=== PATIENT | female | born 1970 | race Caucasian/White ===

== ENCOUNTER 2022-09-04 12:18 | Emergency (ER) | payer OTHER, SELFPAY ==
[2022-09-04 13:02] VITALS: BP 127/78; PULSE 71; RESP 16; TEMP 36.9; O2SAT 100; BMI 23.4
--- NOTE | 2022-09-04 13:06 | XR_ITS ---
[facility] [id number] Patient Name: PUMA MARROQUIN MRN: [id number] date: 1970 Sex: F Assigned Patient Location: ED.MAIN Current Patient Location: ED.MAIN Accession/Order Number: [id number] Exam Date: 09/04/2022 14:05 Report Date: 09/04/2022 14:52 At the request of: JOHNNY HAMMER Procedure: XR ankle LT min 3V EXAM: XR foot LT min 3V, XR ankle LT min 3V HISTORY: injury c/o pain COMPARISON: None. FINDINGS: 3 radiographs of the left ankle and 3 radiographs of the left foot were obtained. Ossific fragment measuring 6 mm along the lateral aspect of the cuboid. Ossific fragment measuring 4 mm along the lateral aspect of the calcaneus. No dislocation. Ankle mortise is symmetric. Talar dome is normal. Soft tissue swelling along the lateral aspect of the calcaneus. Bipartite medial hallux sesamoid. IMPRESSION: Ossific fragment measuring 6 mm along the lateral aspect of the cuboid. Ossific fragment measuring 4 mm along the lateral aspect of the calcaneus. These are favored to be an acute avulsion fractures. However, it could be the sequela of remote trauma. There is mild soft tissue swelling along the lateral aspect of the calcaneus and cuboid. Electronically authenticated by: LIA FLOREZ Date: 09/04/2022 14:52
--- NOTE | 2022-09-04 13:06 | XR_ITS ---
[facility] [id number] Patient Name: PUMA MARROQUIN MRN: [id number] date: 1970 Sex: F Assigned Patient Location: ED.MAIN Current Patient Location: ED.MAIN Accession/Order Number: [id number] Exam Date: 09/04/2022 14:05 Report Date: 09/04/2022 14:52 At the request of: JOHNNY HAMMER Procedure: XR foot LT min 3V EXAM: XR foot LT min 3V, XR ankle LT min 3V HISTORY: injury c/o pain COMPARISON: None. FINDINGS: 3 radiographs of the left ankle and 3 radiographs of the left foot were obtained. Ossific fragment measuring 6 mm along the lateral aspect of the cuboid. Ossific fragment measuring 4 mm along the lateral aspect of the calcaneus. No dislocation. Ankle mortise is symmetric. Talar dome is normal. Soft tissue swelling along the lateral aspect of the calcaneus. Bipartite medial hallux sesamoid. IMPRESSION: Ossific fragment measuring 6 mm along the lateral aspect of the cuboid. Ossific fragment measuring 4 mm along the lateral aspect of the calcaneus. These are favored to be an acute avulsion fractures. However, it could be the sequela of remote trauma. There is mild soft tissue swelling along the lateral aspect of the calcaneus and cuboid. Electronically authenticated by: LIA FLOREZ Date: 09/04/2022 14:52
--- NOTE | 2022-09-04 14:16 | ED.LOWEXI1 ---
HPI - Extremity Injury (Lower) General Chief Complaint: Extremity Injury, Lower Stated Complaint: FALL Time Seen by Provider: 09/04/22 14:07 Source: patient Mode of arrival: Wheelchair Limitations: no limitations History of Present Illness HPI Narrative: patient is a 52-year-old female presents to the Emergency Room with concerns of left lateral foot and ankle pain and swelling. Patient states she was seated on her porch, stood up in her leg was numb from sitting on it causing her ankle to roll, instant crack and pain to the lateral foot and ankle. Patient notes pain with weightbearing, denies history of injury to this foot or ankle previously. Patient denies any additional injury such as head injury or neck injury. 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 Injury: Left: ankle and foot Severity: moderate Associated symptoms: Reports snap/pop sensation and swelling Related Data Previous Rx's Medication Instructions Recorded ibuprofen 600 mg tablet 600 mg PO TID PRN pain #30 tabs 09/04/22 Allergies Allergy/AdvReac Type Severity Reaction Status Date / Time No Known Drug Allergies Allergy Verified 09/04/22 13:02 Review of Systems ROS Constitutional Denies: fever or chills Cardiovascular Denies: chest pain Exam Narrative Exam Narrative: Vital signs reviewed and nurse's notes. The patient is not hypoxic. General: Alert, no acute distress, patient resting comfortably Skin: warm, intact, no pallor noted, mild resolving sunburn to the chest and back Head: Normocephalic, atraumatic Eye: Normal conjunctiva, no exudates Respiratory: No acute distress, lungs CTA Musculoskeletal: No evidence of deformity to the left knee. There is mild amount of swellingand bruising noted to the lateral foot and ankle. There is dependent ecchymosis. No erythema or warmth noted. DP and PT pulses are intact 2+. Normal sensation, normal capillary refill less than 2 seconds. There is no cyanosis or mottling noted. The patient has tenderness to lateral ankle involving the ATFL, cuboid and 5th metatarsal base. There is no midfoot tenderness, or tenderness to the medial ankle. negative anterior drawer, inversion stressing not performed The patient has negative anterior drawer and Apolinar testingto the knee joint, no proximal fibular tenderness. The patient was able to flex and extend although with pain. Patient was able to extend leg off the cart without difficulty. No tenderness noted to the 5th MT, midfoot, ankle or proximal fibular area. There is no pain with calcaneal squeeze, achilles tendon is intact and no defect is palpated. The patient has no pelvic instability. The patient has no shortening or rotation noted to the bilateral lower extremities. Neurological: alert and orient x4, normal sensory and motor observed. Psychiatric: Cooperative Constitutional Vital Signs - 24 hr 09/04/22 13:02 Temperature 98.4 F Pulse Rate [Monitor] 71 Respiratory Rate 16 Blood Pressure [Right Arm] 127/78 H Pulse Oximetry 100 Oxygen Delivery Method Room Air Course Course Hospital Course: Splint Application: The patient was placed in a posterior short leg splint with Orthoglass splint material, 4 inch. The patient had 2 rolls of the web roll applied to the affected site. Patient then had the splint material placed with felt side against web roll and skin. The patient had the splint secured in place with frederic bandage. The patient was neurovascularly intact post application of the splint. Vital Signs Vital signs: Vital Signs Temperature 98.4 F 09/04/22 13:02 Pulse Rate 71 09/04/22 13:02 Respiratory Rate 16 09/04/22 13:02 Blood Pressure 127/78 H 09/04/22 13:02 Pulse Oximetry 100 09/04/22 13:02 Oxygen Delivery Method Room Air 09/04/22 13:02 Temperature 98.4 F 09/04/22 13:02 Pulse Rate 71 09/04/22 13:02 Respiratory Rate 16 09/04/22 13:02 Blood Pressure 127/78 H 09/04/22 13:02 Pulse Oximetry 100 09/04/22 13:02 Oxygen Delivery Method Room Air 09/04/22 13:02 MDM - Extremity Injury (Lower) MDM Narrative Medical decision making narrative: recommend nonweightbearing, discussed x-rays of the left foot and ankle concern for aavulsion fracture off the cuboid, patient is notable bruising swelling and point tenderness in this location. Patient will be placed in a posterior splint. nonweightbearing with crutches dispensed instructions given. ( off work tomorrow for ice , elevation and follow up needs) She is to follow-up with the [facility] may return to the Emergency Room if symptoms worsen or new symptoms develop. Patient states she can work as long as she has crutches to get to and from her office chair, patient will use Motrin and Tylenol with strong recommendation for ice and elevation. The patient is to followup with foot and ankle clinic Dr. Aquino in next 2-3 days or to return to the emergency department should any of the signs or symptoms worsen or new symptoms develop. Patient had questions answered. The patient agrees with the following Diagnosis and Treatment plan and the patient will be discharged home. Discharge Plan Discharge Chief Complaint: Extremity Injury, Lower Clinical Impression: Left cuboid fracture, Ankle sprain and strain Patient Disposition: Home, Self-Care Time of Disposition Decision: 14:19 Condition: Good Prescriptions / Home Meds: New ibuprofen 600 mg tablet 600 mg PO TID PRN (Reason: pain) Qty: 30 0RF Instructions: Foot Fracture in Adults (ED) Stand Alone Forms: Portal Instructions Referrals: Dexter Aquino MD [Physician] - As soon as possible (call monday) Follow Up Appointments: Dr. Aquino, call monday for appt this week, be nonweight bearing Discharge Date/Time: 09/04/22 15:14
[2022-09-04] MEDS: IBUPROFEN 600 MG TABLET PO (15:12)
== END 2022-09-04 15:14 | disposition home or self-care (01) ==
PROVIDERS: Emergency Provider Emergency Medicine; PCP Nurse Practitioner Family
DX: S92.212A Displaced fracture of cuboid bone of left foot, initial encounter for closed fracture (principal); S93.402A Sprain of unspecified ligament of left ankle, initial encounter; S96.912A Strain of unspecified muscle and tendon at ankle and foot level, left foot, initial encounter; X50.9XXA Other and unspecified overexertion or strenuous movements or postures, initial encounter
CPT/HCPCS: 29515; 73610; 73630; 99283

== ENCOUNTER 2022-09-06 14:33 | Outpatient (OUT) | payer OTHER, SELFPAY ==
--- NOTE | 2022-09-06 14:37 | CT_ITS ---
[address] [address] Patient Name: PUMA MARROQUIN MRN: [id number] date: 1970 Sex: F Assigned Patient Location: CT Current Patient Location: CT Accession/Order Number: [id number] Exam Date: 09/06/2022 14:40 Report Date: 09/07/2022 06:48 At the request of: BENTON SOSA Procedure: CT ankle LT wo con EXAMINATION: CT ankle LT wo con HISTORY: Non Displaced Fracture Of Cuboid Left Foot S92.215A COMPARISON: XR left foot and ankle 09/04/2022 TECHNIQUE: Multi-planar CT images were created without IV contrast. Dose reduction techniques were achieved by using automated exposure control and/or adjustment of mA and/or kV according to patient size and/or use of iterative reconstruction technique. FINDINGS: BONES: Small cortical avulsion fractures from the superior anterior lateral margin of the calcaneus and adjacent posterior lateral margin of the cuboid. SOFT TISSUES: Lateral soft tissue swelling/edema. EFFUSION: None visible. OTHER: Negative. IMPRESSION: 1. Minimally displaced cortical avulsion fracture fragments from the adjacent contiguous lateral corners of the cuboid and calcaneus. Electronically authenticated by: GEORGES WILHELM Date: 09/07/2022 06:48
== END 2022-09-06 14:34 ==
LOC: CT 14:33
PROVIDERS: PCP Nurse Practitioner Family; Visit Provider Physician Assistant
DX: S92.215A Nondisplaced fracture of cuboid bone of left foot, initial encounter for closed fracture (principal); S92.002A Unspecified fracture of left calcaneus, initial encounter for closed fracture; X58.XXXA Exposure to other specified factors, initial encounter
CPT/HCPCS: 73700

== ENCOUNTER 2023-06-09 20:42 | Emergency (ER) | payer OTHER, SELFPAY ==
[2023-06-09] VITALS (21 sets, daily range): BP systolic 149–153; BP diastolic 59–61; PULSE 66–86; RESP 13–30; TEMP 36.5; O2SAT 95–96; BMI 24.6
--- NOTE | 2023-06-09 20:50 | ECG_ITS ---
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
--- NOTE | 2023-06-09 21:00 | ED_ITS ---
HPI - Chest Pain General Chief Complaint: Chest Pain Stated Complaint: CHEST PAIN Time Seen by Provider: 06/09/23 20:54 Source: patient Mode of arrival: walk-in Limitations: no limitations History of Present Illness HPI narrative: presents complaining of chest pain. Daily cigarette smoker. Family history of heart disease in 2 siblings. States she was resting and watching TV when she developed chest pain left midaxillary that radiated to substernal area. Associated with dyspnea and nausea. Lasted about 20 minutes and has now resolved. No prior history of heart disease. Past history of depression MD complaint: Reports chest pain Risk Factors Coronary artery disease risk factors: smoking history and family history of CAD before age 50 Related Data Home Medications Medication Instructions Recorded Confirmed venlafaxine 150 mg 150 mg PO DAILY 06/09/23 06/09/23 capsule,extended release 24 hr (Effexor XR) Previous Rx's Medication Instructions Recorded ibuprofen 600 mg tablet 600 mg PO TID PRN pain #30 tabs 09/04/22 Allergies Allergy/AdvReac Type Severity Reaction Status Date / Time No Known Drug Allergies Allergy Verified 06/09/23 20:47 Review of Systems ROS Status of ROS 10 or more systems reviewed and unremark able except as noted in history and below PFSH PFSH Social History Smoking status: Current every day smoker Exam Constitutional Vital Signs, click to edit/add: Last Vital Signs Temp 97.7 F 06/09/23 20:49 Pulse 71 06/09/23 22:40 Resp 13 06/09/23 22:40 BP 149/59 H 06/09/23 22:11 Pulse Ox 96 06/09/23 20:54 O2 Del Method Room Air 06/09/23 20:49 Common normals: no apparent distress, average body habitus, oriented x3, no limitations, healthy appearing, alert and well nourished [facility] Common normals: normocephalic and head/scalp atraumatic Eye Common normals: PERRL, EOMs intact bilaterally and conjunctivae normal Respiratory Common normals: normal respiratory effort, no retractions, no use of accessory muscles and clear to auscultation bilaterally Cardio Common normals: regular rate, regular rhythm, S1 normal heart sound and S2 normal heart sound GI Common normals: Normal to inspection, nondistended, normoactive bowel sounds present, soft to palpation and non-tender Extremity Common normals: normal to inspection and full ROM Neuro Common normals: oriented x3, CN's II-XII intact bilaterally, moves all extremities and no focal motor deficits Psych Appearance: grossly normal Course Vital Signs Vital signs: Vital Signs Temperature 97.7 F 06/09/23 20:49 Pulse Rate 79 06/09/23 20:49 Respiratory Rate 16 06/09/23 20:49 Blood Pressure 153/61 H 06/09/23 20:49 Pulse Oximetry 95 06/09/23 20:49 Oxygen Delivery Method Room Air 06/09/23 20:49 Temperature 97.7 F 06/09/23 20:49 Pulse Rate 71 06/09/23 22:40 Respiratory Rate 13 06/09/23 22:40 Blood Pressure 149/59 H 06/09/23 22:11 Pulse Oximetry 96 06/09/23 20:54 Oxygen Delivery Method Room Air 06/09/23 20:49 MDM - Chest Pain MDM Narrative Medical decision making narrative: patient presents with chest pain that occurred at rest. No history of similar pain. She does smoke cigarettes. Pain tonight associated with dyspnea and nausea. Resolved after 20 minutes. troponin not detectable x2. Patient states she has 2 siblings with heart disease. Advised to follow up with her family doctor to discuss stress testing. She is also advised to return to the ER if pain recurs Lab Data Labs: Lab Results 06/09/23 06/09/23 Range/Units 21:00 23:55 WBC 12.9 H (4.0-11.0) 10^3/uL RBC 4.73 (4.20-5.40) 10^6/uL Hgb 14.2 (12.0-16.0) g/dL Hct 42.9 (36.0-48.0) % MCV 90.7 (81.0-99.0) fL MCH 30.0 (26.7-34.0) pg MCHC 33.1 (29.9-35.2) g/dL RDW 12.0 (11.0-15.0) % Plt Count 389 (150-450) 10^3/uL MPV 8.3 L (9.5-13.5) fL Neut % (Auto) 56.9 (43.0-75.0) % Lymph % (Auto) 30.8 (20.5-60.0) % Collin % (Auto) 6.5 (1.7-12.0) % Eos % (Auto) 4.3 (0.9-7.0) % Baso % (Auto) 1.2 (0.2-2.0) % Neut # (Auto) 7.4 H (1.4-6.5) 10^3/uL Lymph # (Auto) 4.0 H (1.2-3.8) 10^3/uL Collin # (Auto) 0.8 (0.3-0.8) 10^3/uL Eos # (Auto) 0.6 (0.0-0.7) 10^3/uL Baso # (Auto) 0.2 H (0.0-0.1) 10^3/uL Abs Immat Gran (auto) 0.04 H (0.00-0.03) 10^3/uL Imm/Tot Granulo (auto) 0.3 (0.0-0.5) % D-Dimer 0.35 (<=0.59) mg/L FEU Sodium 137 (136-145) mmol/L Potassium 3.6 (3.5-5.1) mmol/L Chloride 103 (98-107) mmol/L Carbon Dioxide 24.5 (21.0-32.0) mmol/L Anion Gap 13.1 BUN 12.0 (7.0-18.0) mg/dL Creatinine 0.82 (0.55-1.02) mg/dL Est GFR ( Amer) >60 (>=60) Est GFR (Non-Af Amer) >60 (>=60) BUN/Creatinine Ratio 14.6 Glucose 93 (74-106) mg/dL Calcium 9.6 (8.5-10.1) mg/dL Troponin I High Sens <4.0 L <4.0 L (4.0-51.3) pg/mL Discharge Plan Discharge Stand Alone Forms: Portal Instructions Chief Complaint: Chest Pain Clinical Impression: Chest pain Patient Disposition: Home, Self-Care Prescriptions / Home Meds: No Action ibuprofen 600 mg tablet 600 mg PO TID PRN (Reason: pain) Qty: 30 0RF venlafaxine [Effexor XR] 150 mg capsule,extended release 24hr 150 mg PO DAILY Instructions: Chest Pain (ED) Additional Instructions: follow up with your doctor next week to discuss stress testing Referrals: CADY MCCORMICK [Primary Care Provider] - 1 week
--- NOTE | 2023-06-09 21:03 | XR_ITS ---
[address] [address] Patient Name: PUMA MARROQUIN MRN: [id number] date: 1970 Sex: F Assigned Patient Location: ER Current Patient Location: ER Accession/Order Number: [id number] Exam Date: 06/09/2023 21:10 Report Date: 06/09/2023 21:37 At the request of: GERSON WHITNEY Procedure: XR chest 1V EXAM: XR chest 1V HISTORY: chest pain COMPARISON: None. TECHNIQUE: Single view of the chest FINDINGS: Heart size normal. No focal consolidation, pleural effusion, pulmonary congestion or pneumothorax. XR/XR chest 1V IMPRESSION: No acute findings. Electronically authenticated by: BRITTON FUENTES Date: 06/09/2023 21:37
[2023-06-09 21:16] LABS: Basophils Absolute Auto 0.2 10^3/uL (0.0-0.1); Basophils Percent Auto 1.2 % (0.2-2.0); Eosinophils Absolute Auto 0.6 10^3/uL (0.0-0.7); Eosinophils Percent Auto 4.3 % (0.9-7.0); Hematocrit 42.9 % (36.0-48.0); Hemoglobin 14.2 g/dL (12.0-16.0); Immature Granulocytes Abs Auto 0.04 10^3/uL (0.00-0.03); Immature Granulocytes Pct Auto 0.3 % (0.0-0.5); Lymphocytes Percent Auto 30.8 % (20.5-60.0); Mean Corpuscular HGB Conc 33.1 g/dL (29.9-35.2); Mean Corpuscular Volume 90.7 fL (81.0-99.0); Mean Platelet Volume 8.3 fL (9.5-13.5); Monocytes Absolute Auto 0.8 10^3/uL (0.3-0.8); Monocytes Percent Auto 6.5 % (1.7-12.0); Neutrophils Absolute Auto 7.4 10^3/uL (1.4-6.5); Neutrophils Percent Auto 56.9 % (43.0-75.0); Platelet Count 389 10^3/uL (150-450); Red Blood Count 4.73 10^6/uL (4.20-5.40); White Blood Count 12.9 10^3/uL (4.0-11.0)
[2023-06-09 21:30] LABS: D Dimer 0.35 mg/L FEU (<=0.59)
[2023-06-09 21:35] LABS: Anion Gap 13.1; BUN Creatinine Ratio 14.6; Calcium 9.6 mg/dL (8.5-10.1); Carbon Dioxide 24.5 mmol/L (21.0-32.0); Chloride 103 mmol/L (98-107); Estimated GFR (African America >60 (>=60); Estimated GFR (Non-African Ame >60 (>=60); Glucose 93 mg/dL (74-106); Potassium 3.6 mmol/L (3.5-5.1); Sodium 137 mmol/L (136-145); Troponin I High Sensitivity <4.0 pg/mL (4.0-51.3)
[2023-06-10] VITALS: PULSE 69; RESP 18
[2023-06-10 00:10] VITALS: PULSE 67; RESP 18
[2023-06-10 00:19] LABS: Troponin I High Sensitivity <4.0 pg/mL (4.0-51.3)
[2023-06-10 00:20] VITALS: PULSE 72; RESP 16
[2023-06-10 00:24] VITALS: PULSE 82; RESP 19
[2023-06-10 00:31] VITALS: BP 138/73
== END 2023-06-10 00:35 | disposition home or self-care (01) ==
PROVIDERS: Emergency Provider Internal Medicine; PCP Nurse Practitioner Family
DX: R07.9 Chest pain, unspecified (principal); F17.210 Nicotine dependence, cigarettes, uncomplicated; Z82.49 Family history of ischemic heart disease and other diseases of the circulatory system; Z79.899 Other long term (current) drug therapy
CPT/HCPCS: 36415; 71045; 80048; 84484; 85025; 85378; 93005; 99284

== ENCOUNTER 2023-06-23 08:49 | Emergency (ER) | payer OTHER, SELFPAY ==
[2023-06-23] VITALS (18 sets, daily range): BP systolic 126–151; BP diastolic 80–101; PULSE 72–90; RESP 12–23; TEMP 36.9; O2SAT 95–98; BMI 25.8
--- OUTSIDE RECORDS SUMMARY | 2023-06-23 08:57 | XMS_ITS | CCD ---
Author Organization [facility] Care Team Providers Care Communication And Outreach Manager Name Role Phone Brandi Sorto Unavailable CADY MCCORMICK Admitting Unavailable JACE, CADY Primary Care Unavailable CADY MCCORMICK Attending Unavailable JACE, CADY Primary Care Unavailable GEORGES WILHELM Consulting Unavailable CADY MCCORMICK Attending Unavailable CADY MCCORMICK Admitting Unavailable CADY MCCORMICK Consulting Unavailable JACE, CADY Admitting Unavailable JACE, CADY Primary Care Unavailable CADY MCCORMICK Consulting Unavailable CADY MCCORMICK Attending Unavailable JACE, CADY Primary Care Unavailable WANDER ., MR DOS SANTOS Consulting Unavailable PAY ., DR ORNELAS Admitting Unavailable PAY ., DR ORNELAS Attending Unavailable Medications Current Medications Medication Drug Class(es) Dates Sig (Normalized) Sig (Original) [id number] 200 actuat albuterol 0.09 mg/actuat metered dose inhaler (2 sources) beta2-Adrenergic Agonist Start: 04-29-2021 take 2 puff(s) by inhalation every four hours as needed Albuterol Sulfate HFA 108 (90 Base) MCG/ACT 2 puffs as needed Inhalation every 4 hrs Apr, Active Albuterol Sulfat e HFA Active Aspirin (1 source) Platelet Aggregation Inhibitor, Nonsteroidal Anti-inflammatory Drug Aspirin Active atorvastatin (1 source) HMG-CoA Reductase Inhibitor Atorvastatin Calcium Active benzonatate 200 mg oral capsule (1 source) Non-narcotic Antitussive Start : 04-29 take 1 capsule by mouth every eight hours Benzonatate 200 MG 1 capsule Orally Three times a day for 10 day(s) Apr, Active Cetirizine (1 source) Histamine-1 Receptor Antagonist ZyrTEC Allergy Activ e FLUoxetine (1 source) Serotonin Reuptake Inhibitor PROzac Active methylPREDNISolone 4 mg oral tablet (1 source) Corticosteroid Start : 04-29 methylPREDNISolone 4 MG as directed Orally Once a day for 6 days Apr, Active Problems Active Problems Problem Classification Problem Date Documented Da te Episodic/Chronic Chronic obstructive pulmonary disease and bronchiectasis (1 source) Emphysema, unspecified; Translations: [EMPHYSEMA UNSPECIFIED] Onset: 04-05-2022 Chronic Headache; including migraine (4 sources) Headache; including migraine; Translations: [HEADACHE UNSPECIFIED] Onset: 11-19-2021 Substance-related disorders (1 source) Nicotine dependence, cigarettes, uncomplicated; Translations: [NICOTINE DEPEND CIGARETTES UNCOMP] Onset: 04-05-2022 Chronic Unclassified (1 source) CONTACT W/AND (SUSP) EXPOS COVID-19; Translations: [CONTACT W/AND (SUSP) EXPOS COVID-19] Onset: 11-22-2021 Past or Other Problems Problem Classification Problem Date Documented Da te Episodic/Chronic Chronic obstructive pulmonary disease and bronchiectasis (1 source) Bronchitis, not specified as acute or chronic Onset: 04-29-2021 Resolved: 04-29-2021 Episodic E Codes: Natural/environment (1 source) Bitten or stung by nonvenomous insect and other nonvenomous arthropods, initial encounter; Translations: [BITTEN NONVENOM INSCT OTH ARTH INIT] Onset: 04-05-2022 Episodic Immunizations and screening for infectious disease (1 source) Contact with and (suspected) exposure to other viral communicable diseases Onset: 04-29-2021 Resolved: 04-29-2021 Episodic Other aftercare (1 source) Other long-term (current) drug therapy; 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] Onset: 04-05-2022 Episodic Other ear and sense organ disorders (3 sources) Otalgia, right ear; Translations: [OTALGIA RIGHT EAR] Onset: 04-04-2022 Episodic Residual codes; unclassified (1 source) Acquired absence of other specified parts of digestive tract; Translations: [ACQ ABSENCE OTH PART DIGESTV TRACT] Onset: 04-05-2022 Episodic Residual codes; unclassified (1 source) Acquired absence of both cervix and uterus; Translations: [ACQUIRED ABSENCE BOTH CERVIX AND UTERUS] Onset: 04-05-2022 Episodic Superficial injury; contusion (1 source) Insect bite (nonvenomous) of right ear, initial encounter; Translations: [INSECT BITE RT EAR INIT ENCOUNTER] Onset: 04-05-2022 Episodic Results Test Name Value Interpretation Reference Range Facil julio Covid-19 PCR (CVDTB)on 11-01 SARS-CoV-2 (COVID-19) RNA JUAN+probe Ql (Unsp spec) Not detected Normal NOT DETECTED [facility] Comment on above: Result Comment: This test is not yet lizzie roved or cleared by the [place] FDA. When there are no FDA-approved or cleared tests available, and other criteria are met, FDA can make tests available under an emergency access mechanism called an Emergency Use Authorization (EUA). The EUA for this test is supported by the [place] of Health and Human Service's (HHS's) declaration that circumstances exist to justify the emergency use of in vitro diagnostics for the detection and/or diagnosis of the virus that causes COVID-19. This EUA will remain in effect (meaning this test can be used) for the duration of the COVID-19 declaration justifying emergency of IVDs, unless it is terminated or revoked by FDA (after which the test may no longer be used). When diagnostic testing is negative, the possibility of a false negative should be considered in the context of a patient's recent exposures and the presence of clinical signs and symptoms consistent with SARS-CoV-2. Performed By: #### C [facility] #### [facility] [address] [place] [address] Dr. Dhaval aSm MRI BRAIN WO CONon 2 MRI BRAIN WO CON EXAMINATION: MRI BRAIN WO CON, 11/19/2021 11:16 AM EDT HISTORY: Headache , dizziness, blurred vision for 2 weeks COMPARISON: None. TECHNIQUE: MRI of the brain was performed without IV contrast. FINDINGS: CEREBRUM: Numerous 5 mm or smaller T2 hyperintensities scattered within the periventricular and subcortical deep white matter bilaterally. No edema, hemorrhage, mass, acute infarction, or inappropriate atrophy. CEREBELLUM: Cerebellar tonsils extend below the foramen magnum, 3 mm on right, 2 mm on left. No edema, hemorrhage, mass, acute infarction, or inappropriate atrophy. BRAINSTEM: No edema, hemorrhage, mass, acute infarction, or inappropriate atrophy. CSF SPACES: Ventricles, cisterns, and sulci are appropriate for age. No hydrocephalus, subarachnoid hemorrhage, or mass. SKULL: No mass or other significant visible lesion. SINUSES: Limited views demonstrate no significant mucosal thickening or fluid. ORBITS: Limited views are unremarkable. OTHER: Negative. IMPRESSION: 1. Bilateral cerebellar tonsillar ectopia which may contribute to patient's symptoms. 2. Numerous tiny T2 hyperintensities scattered within the deep white matter; nonspecific but typically associated with chronic small vessel ischemic changes, sequela of chronic migraine headaches, demyelinating process, or an incidental finding. Consider follow-up imaging in 6 months to document stability. Electronically authenticated by: GEORGES WILHELM Date: 2021-11-19 12:04 Normal [facility] COVID Quick Testingon 2021 Result Negative [email or web address] Other Quick Fluon 04-29-2021 FLUAV Ab CF (S) [Titer] Negative [email or web address] Other FLUBV Ab CF (S) [Titer] Negative [email or web address] Other Vital Signs Date Time Vital Sign Value Performing Clinician Facility 04-29-2021 10:00-0500 Body height 154.94 cm Branid Abreuault Other [email or web address] Other 04-29-2021 10:00-0500 Body mass index (BMI) [Ratio] 23.99 kg/m2 Brandi Noreen Other [email or web address] Other 04-29-2021 10:00-0500 Body temperature 97 [degF] Brandi Noreen Other [email or web address] Other 04-29-2021 10:00-0500 Body weight 57.61 kg Brandi Noreen Other [email or web address] Other 04-29-2021 10:00-0500 Respiratory rate 18 /min Brandi Noreen Other [email or web address] Other 04-29-2021 10:00-0500 SaO2% (BldA) [Mass fraction] 96 % Brandi Abreuault Other [email or web address] Other Encounters Encounter Date Encounter Type Care Provider Facility Start: 04-04-2022 End: 04-04-2022 ambulatory CADY MCCORMICK Facility:[facility] Start: 11-19-2021 End: 11-20-2021 ambulatory CADY MCCORMICK Facility:[facility] Start: 08-26-2021 ambulatory CADY MCCORMICK Facility: [facility] Start: 04-29-2021 End: 04-29-2021 ambulatory Brandi Sorto Other [email or web address] Other Start: 04-29-2021 Office outpatient visit 15 minutes Brandi Sorto [facility] Payers Date Payer Category Payer Unknown [id number] 2.16.84 [id number] 1970 Unknown [id number] 2.16.84 [id number] 1970 Unknown [id number] 2.16.84 [id number] 1970 Unknown [id number] 2.16.84 [id number] 1961 Private Health Insurance [id number] 1961 Self-pay [id number] 1961 Unknown [id number] Social History Date Type Detail Facility Unknown if ever smoked [email or web address] Other Sex Assigned At Sex Assigned At Bir th [email or web address] Other Evaluation note 04-29-2021 Note Date & Type Note Facility 04-29-2021 Evaluation note Encounter Date Diagnosis Assessment Notes Apr, Contact with and (suspected) exposure to other viral communicable diseases (ICD-10 - Z20.828) Even though COVID RAPID test is NEGATIVE, I am highly suspicious at this time you may be positive due to the symptoms. Recommend patient follow Quarantine guidelines until you follow up with PCP.. Recommend OTC medication such as Mucinex, Sea salt nasal spray, Cepecol, Tylenol, Zyrtec, as they can help with symptoms VIRAL URI HANDOUT GIVEN TO PATIENT THAT RECOMMENDS OTC MEDICATIONS, FOLLOW UP AND WHEN TO SEEK EMERGENCY TREATMENT Apr, Bronchitis (ICD-10 - J40) Apr, Other Additional time spent conducting pre-visit phone call, screening for symptoms, instructions on social distancing, application and removal of PPE, and cleaning of examination room, equipment and supplies was preformed. Patient education given for testing methodology and results. Patient care instructions given in writting by [facility] document. [email or web address] Other History general Narrative - Reported Note Date & Type Note Facility History general Narrative - Reported Type Medical History anxiety Medical History hypercholesterolemia Medical History emphysema Surgical History appendectomy Surgical History hysterectomy Surgical History cholecystectomy [email or web address] Other Summary Purpose Family History No Family History Records Found Advance Directives No Advanced Directives Records Found Additional Source Comments REASON FOR VISIT (unrecogniz ed section and content) #1 RED TERRAIN, DOLLYID Provid er Visit INFORMATION SOURCE (unrecogn ized section and content) DATE CREATED AUTHOR 08/09/[address] [facility] FOR RECORDS PERTAINING TO PATIENTS WHO ARE OR HAVE BEEN ENROLLED IN A CHEMICAL DEPENDENCY/SUBSTANCEABUSE PROGRAM, SOME INFORMATION MAY BE OMITTED. This clinical summary was aggregated from multiple sources. Caution should be exercised in using it in the provision of clinical care. This summary normalizes information from multiple sources, and as a consequence, information in this document may materially change the coding, format and clinical context of patient data. In addition, data may be omitted in some cases. CLINICAL DECISIONS SHOULD BE BASED ON THE PRIMARY CLINICAL RECORDS. [facility]. provides no warranty or guarantee of the accuracy or completeness of information in this document.
--- NOTE | 2023-06-23 09:26 | ED.GENADUL1 ---
HPI - General Adult General Chief complaint: Chest Pain Stated complaint: HIGH BLOOD PRESSURE Time Seen by Provider: 06/23/23 09:00 Source: patient Mode of arrival: walk-in Limitations: no limitations History of Present Illness HPI narrative: Sudden dizziness yesterday and again this morning while going from sitting to standing. Blood pressure values were 152/90 and then 150/89. Here she is 150/80 No chest pain or shortness of breath - she experienced chest pain earlier in the month and was evaluated in our ED - had a negative workup and is supposed to be scheduled for out patient stress test. No recent URI or injury to the head or neck. No tinnitus. She said her vision seemed a little bit blurred - been just over a year since she last had her eye prescription checked. She denied any recent change in diet/oral intake, denied fluid loss via vomiting or diarrhea. No headache or neck pain at this time. Never had high BP in the past. Related Data Home Medications ?Medication ?Instructions ?Recorded ?Confirmed venlafaxine 150 mg 150 mg PO DAILY 06/09/23 06/23/23 capsule,extended release 24 hr (Effexor XR) cetirizine 10 mg tablet 10 mg PO DAILY 06/23/23 06/23/23 Previous Rx's ?Medication ?Instructions ?Recorded ibuprofen 600 mg tablet 600 mg PO TID PRN pain #30 tabs 09/04/22 lisinopril 5 mg tablet 5 mg PO DAILY #30 tabs 06/23/23 Allergies Allergy/AdvReac Type Severity Reaction Status Date / Time No Known Drug Allergies Allergy Verified 06/09/23 20:47 PFSH PFS Social History Smoking status: Current every day smoker Exam Narrative Exam Narrative: Nurses notes and vital signs reviewed and patient is not hypoxic. Afebrile General: Well-appearing and in no apparent distress. Skin: Warm, dry, no pallor noted. No rash. Head: Normocephalic, atraumatic. Neck: Supple, non-tender. No meningismus. No carotid bruits Eye: Pupils are equal, round and EOMI. No scleral icterus. No nystagmus Ears, Nose, Mouth, and Throat: TM are clear, no posterior oropharynx erythema or nasal mucosal hypertrophy, uvula is mid-line Oral mucosa is moist Cardiovascular: Regular Rate and Rhythm without murmur, gallop or rub. Respiratory: No accessory muscle use or respiratory distress. Lungs are clear to auscultation, no wheezing, rales or rhonchi Musculoskeletal: normal ROM, no calf or popliteal tenderness, no lower extremity edema/swelling GI: Abdomen is soft, non-distended. Normal bowel sounds. No tenderness to palpation. No rebound, guarding, or rigidity noted. Neurological: A&O x4. No cranial nerve dysfunction observed. No truncal ataxia. Moves all extremities. Sensation intact. Psychiatric: Cooperative and interactive. Normal mood and affect. Constitutional Vital Signs, click to edit/add: Last Vital Signs Temp 98.5 F 06/23/23 08:52 Pulse 84 06/23/23 10:30 Resp 23 06/23/23 10:30 BP 126/96 H 06/23/23 10:15 Pulse Ox 98 06/23/23 10:30 O2 Del Method Room Air 06/23/23 08:52 Course Vital Signs Vital signs: Vital Signs Temperature 98.5 F 06/23/23 08:52 Pulse Rate 85 06/23/23 08:52 Respiratory Rate 18 06/23/23 08:52 Blood Pressure 150/80 H 06/23/23 08:52 Pulse Oximetry 97 06/23/23 08:52 Oxygen Delivery Method Room Air 06/23/23 08:52 Temperature 98.5 F 06/23/23 08:52 Pulse Rate 84 06/23/23 10:30 Respiratory Rate 23 06/23/23 10:30 Blood Pressure 126/96 H 06/23/23 10:15 Pulse Oximetry 98 06/23/23 10:30 Oxygen Delivery Method Room Air 06/23/23 08:52 Medical Decision Making MDM Narrative Medical decision making narrative: Patient was placed on diagnostic cardiac sonographer and EKG obtained. Blood drawn and sent for evaluation. White blood cell count minimally elevated at 12.8. No left shift noted. CMP was normal. She felt better after ED treatment. Patient was informed of results and given reassurance. I discharged her home with a prescription for low-dose lisinopril. She can see her primary care physician for follow-up to have her blood pressure rechecked. Lab Data Lab results reviewed: Yes I reviewed the patient's lab results Labs: Lab Results 06/23/23 Range/Units 09:42 WBC 12.8 H (4.0-11.0) 10^3/uL RBC 4.83 (4.20-5.40) 10^6/uL Hgb 14.1 (12.0-16.0) g/dL Hct 43.4 (36.0-48.0) % MCV 89.9 (81.0-99.0) fL MCH 29.2 (26.7-34.0) pg MCHC 32.5 (29.9-35.2) g/dL RDW 12.0 (11.0-15.0) % Plt Count 375 (150-450) 10^3/uL MPV 8.2 L (9.5-13.5) fL Neut % (Auto) 63.0 (43.0-75.0) % Lymph % (Auto) 27.4 (20.5-60.0) % Harrison % (Auto) 5.5 (1.7-12.0) % Eos % (Auto) 2.7 (0.9-7.0) % Baso % (Auto) 1.2 (0.2-2.0) % Neut # (Auto) 8.0 H (1.4-6.5) 10^3/uL Lymph # (Auto) 3.5 (1.2-3.8) 10^3/uL Harrison # (Auto) 0.7 (0.3-0.8) 10^3/uL Eos # (Auto) 0.4 (0.0-0.7) 10^3/uL Baso # (Auto) 0.2 H (0.0-0.1) 10^3/uL Abs Immat Gran (auto) 0.03 (0.00-0.03) 10^3/uL Imm/Tot Granulo (auto) 0.2 (0.0-0.5) % Sodium 137 (136-145) mmol/L Potassium 4.7 (3.5-5.1) mmol/L Chloride 101 (98-107) mmol/L Carbon Dioxide 24.4 (21.0-32.0) mmol/L Anion Gap 16.3 BUN 16.0 (7.0-18.0) mg/dL Creatinine 0.87 (0.55-1.02) mg/dL Est GFR ( Amer) >60 (>=60) Est GFR (Non-Af Amer) >60 (>=60) BUN/Creatinine Ratio 18.4 Glucose 96 (74-106) mg/dL Calcium 9.9 (8.5-10.1) mg/dL Total Bilirubin 0.2 (0.2-1.0) mg/dL AST 20 (15-37) U/L ALT 22 (14-59) U/L Alkaline Phosphatase 122 H (46-116) U/L Total Protein 7.9 (6.4-8.2) g/dL Albumin 4.1 (3.4-5.0) g/dL Globulin 3.8 g/dL Albumin/Globulin Ratio 1.1 ECG Data Attestation: I personally reviewed and interpreted this ECG as follows: Interpretation: EKG interpretation: Emergency Department physician interpretation. Normal sinus rhythm at 82bpm. Right axis deviation. Nonspecific T wave changes with flattening in leads II and aVF, Subtle T wave inversion in 1 and aVL. Normal remaining intervals and no ST segment elevation or depression. Discharge Plan Discharge Stand Alone Forms: Portal Instructions Chief Complaint: Chest Pain Clinical Impression: Hypertension Patient Disposition: Home, Self-Care Time of Disposition Decision: 10:53 Prescriptions / Home Meds: New lisinopril 5 mg tablet 5 mg PO DAILY Qty: 30 0RF No Action ibuprofen 600 mg tablet 600 mg PO TID PRN (Reason: pain) Qty: 30 0RF cetirizine 10 mg tablet 10 mg PO DAILY venlafaxine [Effexor XR] 150 mg capsule,extended release 24hr 150 mg PO DAILY Print Language: Hungarian Instructions: Hypertension (ED) Referrals: CADY MCCORMICK [Primary Care Provider] - 1 week
--- NOTE | 2023-06-23 09:30 | ECG_ITS ---
[facility] Test Date: 2023-06-23 Pat Name: PUMA MARROQUIN Department: Room: - Gender: Female Garage Hand: : 1970 Requested By: CADY MCCORMICK Order Number: [id number] Reading MD: ROBERT GARCIA Measurements Intervals [place] Rate: 82 P: 103 TN: 158 QRS: 108 QRSD: 84 T: 150 QT: 364 QTc: 403 Interpretive Statements 1100 Sinus rhythm 4068 Nonspecific Twave abnormality 7100 Abnormal right axis deviation 0101 Possible arm leads reversed, check lead requested 9130 borderline ECG Compared to ECG 06/09/2023 20:54:54 No significant changes Electronically Signed On 06-25-2023 7:20:56 EDT by ROBERT GARCIA
[2023-06-23] MEDS: MECLIZINE HCL 12.5 MG TABLET 25 MG PO (09:49)
[2023-06-23 09:50] LABS: Basophils Absolute Auto 0.2 10^3/uL (0.0-0.1); Basophils Percent Auto 1.2 % (0.2-2.0); Eosinophils Absolute Auto 0.4 10^3/uL (0.0-0.7); Eosinophils Percent Auto 2.7 % (0.9-7.0); Hematocrit 43.4 % (36.0-48.0); Hemoglobin 14.1 g/dL (12.0-16.0); Immature Granulocytes Abs Auto 0.03 10^3/uL (0.00-0.03); Immature Granulocytes Pct Auto 0.2 % (0.0-0.5); Lymphocytes Absolute Auto 3.5 10^3/uL (1.2-3.8); Lymphocytes Percent Auto 27.4 % (20.5-60.0); Mean Corpuscular HGB Conc 32.5 g/dL (29.9-35.2); Mean Corpuscular Hemoglobin 29.2 pg (26.7-34.0); Mean Corpuscular Volume 89.9 fL (81.0-99.0); Mean Platelet Volume 8.2 fL (9.5-13.5); Monocytes Absolute Auto 0.7 10^3/uL (0.3-0.8); Monocytes Percent Auto 5.5 % (1.7-12.0); Platelet Count 375 10^3/uL (150-450); Red Blood Count 4.83 10^6/uL (4.20-5.40); White Blood Count 12.8 10^3/uL (4.0-11.0)
[2023-06-23 10:25] LABS: Alanine Aminotransferase 22 U/L (14-59); Albumin Globulin Ratio 1.1; Albumin Level 4.1 g/dL (3.4-5.0); Alkaline Phosphatase 122 U/L (46-116); Anion Gap 16.3; Aspartate Amino Transferase 20 U/L (15-37); BUN Creatinine Ratio 18.4; Bilirubin Total 0.2 mg/dL (0.2-1.0); Calcium 9.9 mg/dL (8.5-10.1); Carbon Dioxide 24.4 mmol/L (21.0-32.0); Chloride 101 mmol/L (98-107); Estimated GFR (African America >60 (>=60); Estimated GFR (Non-African Ame >60 (>=60); Globulin 3.8 g/dL; Glucose 96 mg/dL (74-106); Potassium 4.7 mmol/L (3.5-5.1); Sodium 137 mmol/L (136-145); Total Protein 7.9 g/dL (6.4-8.2)
== END 2023-06-23 11:03 | disposition home or self-care (01) ==
PROVIDERS: Emergency Provider Emergency Medicine; PCP Nurse Practitioner Family
DX: I10 Essential (primary) hypertension (principal); Z79.899 Other long term (current) drug therapy; F17.210 Nicotine dependence, cigarettes, uncomplicated
CPT/HCPCS: 36415; 80053; 85025; 93005; 99284

== ENCOUNTER 2023-07-12 06:02 | Outpatient (OUT) | payer OTHER, SELFPAY ==
--- OUTSIDE RECORDS SUMMARY | 2023-07-12 06:04 | XMS_ITS | CCD ---
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 When there are no FDA-approved or cleared tests available, and other criteria are met, FDA can make tests available under an emergency access mechanism called an Emergency Use Authorization (EUA). The EUA for this test is supported by the [place] of Health and Human Service's (HHS's) declaration [...] consistent with SARS-CoV-2. Performed By: #### C [facility] #### [facility] [address] [place] [address] Dr. Dhaval Sam MRI BRAIN WO CONon 2 MRI BRAIN [...] GEORGES WILHELM Date: 2021-11-19 12:04 Normal [facility] COVID Quick Testingon 2021 Result Negative [employer] Other Quick Fluon 04-29-2021 FLUAV Ab CF (S) [Titer] Negative [employer] Other FLUBV Ab CF (S) [Titer] Negative [employer] Other Vital Signs Date Time Vital Sign Value Performing Clinician Facility 04-29-2021 10:00-0500 Body height 154.94 cm Brandi Abreuault Other [employer] Other 04-29-2021 10:00-0500 Body mass index (BMI) [Ratio] 23.99 kg/m2 Brandi Noreen Other [employer] Other 04-29-2021 10:00-0500 Body temperature 97 [degF] Brandi Noreen Other [employer] Other 04-29-2021 10:00-0500 Body weight 57.61 kg Brandi Noreen Other [employer] Other 04-29-2021 10:00-0500 Respiratory rate 18 /min Brandi Noreen Other [employer] Other 04-29-2021 10:00-0500 SaO2% (BldA) [Mass fraction] 96 % Brandi Abreuault Other [employer] Other Encounters Encounter Date Encounter Type Care Provider Facility Start: 04-04-2022 End: 04-04-2022 ambulatory CADY MCCORMICK Facility:[facility] Start: 11-19-2021 End: 11-20-2021 ambulatory CADY MCCORMICK Facility:[facility] Start: 08-26-2021 ambulatory CADY MCCORMICK Facility: [facility] Start: 04-29-2021 End: 04-29-2021 ambulatory Brandi Sorto Other [employer] Other Start: 04-29-2021 Office outpatient visit 15 minutes Brandi Sorto [facility] [place] Payers Date Payer Category Payer Unknown [id number] 2.16.84 [id number] 1970 Unknown [id number] 2.16.84 [id number] 1970 Unknown [id number] 2.16.84 [id number] 1970 Unknown [id number] 2.16.84 [id number] 1961 Private Health Insurance [id number] 1961 Self-pay [id number] 1961 Unknown [id number] 2.16. [id number] Social History Date Type Detail Facility Unknown if ever smoked [employer] Other Sex Assigned At Sex Assigned At Bir th [employer] Other Evaluation note 04-29-2021 Note Date & [...] Patient care instructions given in writting by [facility] document. [employer] Other History general Narrative - Reported Note Date & Type Note Facility History general Narrative - Reported Type Medical History anxiety Medical History hypercholesterolemia Medical History emphysema Surgical History appendectomy Surgical History hysterectomy Surgical History cholecystectomy [employer] Other Summary Purpose Family History No Family History Records Found Advance Directives No Advanced Directives Records Found Additional Source Comments REASON FOR VISIT (unrecogniz ed section and content) #1 RED TERRAIN, DOLLYID Provid er Visit INFORMATION SOURCE (unrecogn ized section and content) DATE CREATED AUTHOR 08/09/2022 [facility] FOR RECORDS PERTAINING TO PATIENTS WHO [...] BE BASED ON THE PRIMARY CLINICAL RECORDS. [facility] [employer] [facility]. provides no warranty or guarantee of the accuracy or completeness of information in this document.
--- NOTE | 2023-07-12 06:15 | NM_ITS ---
Patient Name: PUMA MARROQUIN MR#: [id number] : 1970 Exam Date: 07/12/2023 Ordering Doctor: CADY MCCORMICK CNP RADIOLOGY REPORT PROCEDURE: NM ASIF PERF SPECT REST STR COMPARISON: None. INDICATIONS: CHEST PAIN TECHNIQUE: Exam Description: Stress/Rest one day protocol gated SPECT Rest Imagin.3 mCi Tc-99m Cardiolite IV on 07/12/2023 Stress Imaging 31.2 mCi Tc-99m Cardiolite IV on 07/12/2023 Exercise Protocol: Figueroa Heart Rate (bpm): Rest: 88 Max: 150 PMHR: 90 Blood Pressure: Rest: Max: 162/82 Exercise Time: Minutes: 8 Seconds: 36 Stage Reached: Stage: 3 Mets 10.1 Symptoms: Rest and peak stress ECG findings were non-diagnostic and the exercise portion of the study was Non-diagnostic per attending physician Dr. Lopez due to EKG changes. For more details please see separate cardiac stress test report. FINDINGS: QUALITY OF STUDY: Excellent. PERFUSION DEFECT: None. LOCATION: N/A SIZE: N/A. SEVERITY: N/A. TYPE: N/A. WALL MOTION: Normal. LV SIZE: Normal. 40 mL. TID / TCD: None; 0.7 LVEF: Normal. Calculated EF 83%. SUMMARY: Myocardial perfusion imaging study is NORMAL. CONCLUSION: 1. Normal nuclear medicine myocardial perfusion scan. Dictated by: Jeff Mayer M.D. on 07/13/2023 at 15:34 Approved by: Jeff Mayer M.D. on 07/13/2023 at 15:40
--- NOTE | 2023-07-12 14:22 | P.STRESS_ITS ---
Stress Test Stress Test Allergies Allergy/AdvReac Type Severity Reaction Status Date / Time No Known Drug Allergies Allergy Verified 06/09/23 20:47 Requesting physician: CADY MCCORMICK Procedure: Exercise Cardiolite stress test General Information: Reason for Stress Test: Chest pain Cardiac History and Risk Factors: Current smoker. CAD in brother and sister. Resting 12 - Lead Electrocardiogram: Rate & rhythm: Normal sinus at a rate of 84. [place]: Right T-waves: Flattened in I ST-segments: Normal orientation Stress Test: Protocol: Figueroa protocol was followed, with injection of Cardiolite once target heart rate was achieved. Exercise capacity: Good exercise capacity. Total exercise time of 8 minutes 37 seconds reached Figueroa stage 3 at 3.4MPH, 14% grade, & 10.1 METs. Blood pressure: Initial: 142/82, Maximum: 162/82 Rate & rhythm: Patient remained in Sinus rhythm during the exercise and recovery portions of the study.? The maximum heart rate was 150, which was 90% of the maximum predicted heart rate. PVCs noted. ST-segments & T-waves: During recovery, there were biphasic T- waves noted in the inferior leads as well as V5-6. Patient response/symptoms: No reproducible symptoms to chief complaint. Mild dyspnea reported. Interpretation: Non-diagnostic exercise stress test with development of biphasic T-waves in the inferolateral leads. Asymptomatic for chest pain. Cardiolite imaging interpretation will be reported separately. Clinical correlation required.?
== END 2023-07-12 06:03 | disposition home or self-care (01) ==
PROVIDERS: PCP Nurse Practitioner Family; Visit Provider Nurse Practitioner Family
DX: R07.9 Chest pain, unspecified (principal)
CPT/HCPCS: 78452; 93017; A9500

== ENCOUNTER 2023-09-16 09:59 | Outpatient (OUT) | payer OTHER, SELFPAY ==
--- NOTE | 2023-09-16 | CT_ITS ---
[address] [address] Patient Name: PUMA MARROQUIN MRN: [id number] date: 1970 Sex: F Assigned Patient Location: CT Current Patient Location: Accession/Order Number: [id number] Exam Date: 09/16/2023 10:07 Report Date: 09/18/2023 13:14 At the request of: CADY MCCORMICK Procedure: CT lung screening low-dose EXAMINATION: CT lung screening low-dose HISTORY: Smoker F17.200 COMPARISON: CT chest 08/23/2022 TECHNIQUE: Axial, Coronal, and Sagittal images were created without the administration of IV contrast material. Dose reduction techniques were achieved by using automated exposure control and/or adjustment of mA and/or kV according to patient size and/or use of iterative reconstruction technique. FINDINGS: LUNGS: Stable nodules favoring granulomas within posterior lateral base of right upper lobe, largest is approximately 8 x 4 x 4 mm. Stable right upper lobe/apical scarring. No new or suspicious nodules. Mild emphysematous changes. PLEURA: No mass, effusion, or pneumothorax. VASCULATURE: No abnormality. LINDA: No mass or pathologic adenopathy. MEDIASTINUM: No mass or pathologic adenopathy. CARDIAC: No enlargement, pericardial thickening, or pericardial effusion. Coronary artery calcifications: AORTA: No aneurysm or dissection. CHEST WALL: No mass or axillary adenopathy BONES: No bone lesion or fracture. LIMITED ABDOMEN: No suspicious findings. Limited images of the upper abdomen. OTHER: Negative. CT/CT lung screening low-dose IMPRESSION: 1. Lung-RADS 2- Benign Appearance or Behavior. Nodules with a very low likelihood of becoming a clinically active cancer due to size or lack of growth. Follow-up CT Chest in 1 year. Electronically authenticated by: GEORGES WILHELM Date: 09/18/2023 13:14
--- OUTSIDE RECORDS SUMMARY | 2023-09-16 10:01 | XMS_ITS | CCD ---
Author Organization [facility] [place] [facility] Care Team Providers Care Mathematics Professor Name Role Phone Brandi Sorto Unavailable CADY MCCORMICK Admitting Unavailable CADY MCCORMICK Primary Care Unavailable CADY MCCORMICK Attending Unavailable JACE, CADY Primary Care Unavailable GEORGES WILHELM Consulting Unavailable CADY MCCORMICK Attending Unavailable CADY MCCORMICK Admitting Unavailable CADY MCCORMICK Consulting Unavailable JACE, CADY Admitting Unavailable JACE, CADY Primary Care Unavailable CADY MCCORMICK Consulting Unavailable CADY MCCORMICK Attending Unavailable CADY MCCORMICK Primary Care Unavailable WANDER Spann, MR DOS SANTOS Consulting Unavailable PAY ., DR ORNELAS Admitting Unavailable PAY ., DR ORNELAS Attending Unavailable Medications Current Medications Medication Drug Class(es) Dates Sig (Normalized) Sig (Original) [id number] 200 actuat albuterol 0.09 mg/actuat metered dose [...] 04-29-2021 Episodic Other aftercare (1 source) Other intermediate frame tender (current) drug therapy; Translations: [OTH DETENTION CURRENT DRUG THERAPY] Onset: 04-05-2022 Episodic Other [...] Test Name Value Interpretation Reference Range [facility]il it[facility] SARS-CoV-2 (COVID-19) RNA JUAN+probe Ql (Unsp spec) Not detected Normal NOT DETECTED [facility] Comment on above: Result Comment: This test is not yet lizzie roved or cleared by the [place] FDA. When there are no FDA-approved or cleared tests available, and other criteria are met, FDA can make tests available under an emergency access mechanism called an Emergency Use Authorization (EUA). The EUA for this test is supported by the [place] of Health and Human Service's (HHS's) declaration [...] consistent with SARS-CoV-2. Performed By: #### C [facility] #### [facility] [address] [place] [address] Dr. Dhaval Sam MRI BRAIN WO CONon [...] by: GEORGES WILHELM Date: 2021-11-19 12:04 Normal [facility] COVID Quick Testingon 2021 Result Negative [facility] Other Quick Fluon 04-29-2021 FLUAV Ab CF (S) [Titer] Negative [facility] Other FLUBV Ab CF (S) [Titer] Negative [facility] Other Vital Signs Date Time Vital Sign Value Performing Clinician Facility 04-29-2021 10:00-0500 Body height 154.94 cm Brandi Sorto Other [facility] 04-29-2021 10:00-0500 Body mass index (BMI) [Ratio] 23.99 kg/m2 Brandi Sorto Other [facility] 04-29-2021 10:00-0500 Body temperature 97 [degF] Brandi Abreuault Other [facility] Other 04-29-2021 10:00-0500 Body weight 57.61 kg Brandi Abreuault Other [facility] Other 04-29-2021 10:00-0500 Respiratory rate 18 /min Brandi Abreuault Other [facility] Other 04-29-2021 10:00-0500 SaO2% (BldA) [Mass fraction] 96 % Brandi Sorto Other [facility] Other Encounters Encounter Date Encounter Type Care Provider Facility Start: 04-04-2022 End: 04-04-2022 ambulatory CADY MCCORMICK Facility:[facility] Start: 11-19-2021 End: 11-20-2021 ambulatory CADY MCCORMICK Facility:[facility] Start: 08-26-2021 ambulatory CADY MCCORMICK Facility: [facility] Start: 04-29-2021 End: 04-29-2021 ambulatory Brandi Sorto Other [facility] Other Start: 04-29-2021 Office outpatient visit 15 minutes Brandi Noreen [facility] Payers Date Payer Category Payer Unknown [id number] [id number] [id number] 1970 Unknown [id number] [id number] [id number] 1970 Unknown [id number] [id number] [id number] 1970 Unknown [id number] 2.16.84 [id number] 1961 Private Health Insurance [id number] 1961 Self-pay [id number] 1961 Unknown [id number] Social History Date Type Detail Facility Unknown if ever smoked [facility] Other Sex Assigned At Sex Assigned At Bir th [facility] Other Evaluation note 04-29-2021 Note Date & [...] Patient care instructions given in writting by [facility] Care At Home document. [facility] Other History general Narrative - Reported Note Date & Type Note Facility History general Narrative - Reported Type Medical History anxiety Medical History hypercholesterolemia Medical History emphysema Surgical History appendectomy Surgical History hysterectomy Surgical History cholecystectomy [facility] Other Summary Purpose Family History No Family History Records Found Advance Directives No Advanced Directives Records Found Additional Source Comments REASON FOR VISIT (unrecogniz ed section and content) #1 [place], COVID Provid er Visit INFORMATION SOURCE (unrecogn ized section and content) DATE CREATED AUTHOR 08/09/2022 [facility] FOR RECORDS PERTAINING TO PATIENTS WHO ARE [...] BE BASED ON THE PRIMARY CLINICAL RECORDS. [facility] [employer] [facility]. provides no warranty or guarantee of the accuracy or completeness of information in this document.
== END 2023-09-16 10:00 | disposition home or self-care (01) ==
LOC: CT 10:00
PROVIDERS: PCP Nurse Practitioner Family; Visit Provider Nurse Practitioner Family
DX: F17.200 Nicotine dependence, unspecified, uncomplicated (principal)
CPT/HCPCS: 71271